=== PATIENT | female | born 1955 | race Caucasian/White ===

== ENCOUNTER 2021-01-02 08:50 | Day surgery (SDC) | payer MEDICARE, OTHER ==
[~2021-01-02 08:50] MED LIST: Midazolam 1 MG/ML 2 ML SDV ONE; Propofol 200 MG/20 ML SDV ONE; fentaNYL 100 MCG/2 ML SDV ONE
[2021-01-02] MEDS ORDERED: Sodium Chloride 0.9% 1,000 ML IV SCH (09:30)
[2021-01-02 11:26] VITALS: BP 127/81; PULSE 77
--- NOTE | 2021-01-02 14:55 | OR ---
DATE OF PROCEDURE: 01/02/2021 SURGEON: Reuben Leonard MD PROCEDURE: Colonoscopy. FINDINGS: Ascending colon polyp, approximately 5 mm, completely removed using cold biopsy forceps. COMPLICATIONS: None. BEE TENDER: None. ANESTHESIA: MAC. PREOPERATIVE DIAGNOSIS: Screening colonoscopy. POSTOPERATIVE DIAGNOSIS: Screening colonoscopy. RISKS: Risks, benefits, alternatives, and limitations including, but not limited to infection, bleeding, perforation, false positives and false negatives were explained to the patient and she wished to proceed. PROCEDURE IN DETAIL: The patient was placed in left lateral decubitus position. Digital rectal exam was performed without abnormality. Scope was introduced and advanced atraumatically to the ileocecal valve. A photo was taken of this. Scope was brought back to the ascending, transverse, descending colon, and retroflexed. No evidence of old or new blood. No masses. The aforementioned polyp was identified and completely removed. No abnormalities on retroflexion. Greater than 8 minutes was spent removing the scope. Prep was acceptable, approximately 90% of the luminal surface could be seen. The patient tolerated the procedure well. Reuben Leonard MD /[id number]
== END 2021-01-02 10:58 | disposition home or self-care (01) ==
LOC: JP.SDS 08:50
PROVIDERS: ATTEND Surgery
DX: Z12.11 Encounter for screening for malignant neoplasm of colon (principal); D12.2 Benign neoplasm of ascending colon; E78.5 Hyperlipidemia, unspecified; I10 Essential (primary) hypertension; R73.9 Hyperglycemia, unspecified; Z88.1 Allergy status to other antibiotic agents; Z88.2 Allergy status to sulfonamides
CPT/HCPCS: 45380; J2250; J2704; J3010; J7030